=== PATIENT | male | born 2000 | race Caucasian/White ===

== ENCOUNTER 2023-04-18 14:47 | Emergency (ER) | payer MEDICAID ==
[~2023-04-18] VITALS: Ht 177.8 cm; Wt 95.3 kg
[2023-04-18] MEDS: KETOROLAC TROMETHAMINE INJ 30 MG/ML VIAL IM ONE (16:15)
[2023-04-18] MEDS ORDERED: METH4TAB17 PO (16:23)
[2023-04-18] MEDS ORDERED: IBUP-1955 PO (16:23)
[2023-04-18] MEDS ORDERED: DICL1KIT14 TP (16:24)
[2023-04-18] MEDS ORDERED: KETOROLAC TROMETHAMINE INJ 30 MG/ML VIAL ONE (16:47)
[2023-04-18 17:12] VITALS: BP 126/88; TEMP 98.1; O2SAT 100
== END 2023-04-18 17:12 | disposition home or self-care (01) ==
LOC: ER 14:57
DX: M54.50 Low back pain, unspecified (principal)
CPT/HCPCS: 99283; 96372; J1885